=== PATIENT | female | born 1960 | race Caucasian/White ===

== ENCOUNTER 2017-04-19 08:18 | Inpatient (IN) | payer BC, OTHER, MEDICARE ==
--- NOTE | 2017-04-19 08:34 | ER Document Report ---
ED General - General Stated Complaint: POSSIBLE ETOH Time Seen by Provider: 04/19/17 08:31 Mode of Arrival: Medic Information source: Patient Notes: 56-year-old chronic alcoholic who recently moved here from [place] presents after 3 mechanical falls. Patient notes she has been too weak to stand. Patient admits to history of alcohol abuse and liver issues, denies having a paracentesis in the past. - HPI Onset: Just prior to arrival Onset/Duration: Sudden Quality of pain: No pain Severity: Moderate Pain Level: Denies Associated symptoms: Weakness Exacerbated by: Denies Relieved by: Denies Similar symptoms previously: Yes Recently seen / treated by doctor: No - Related Data Allergies/Adverse Reactions: No Known Allergies Allergy (Unverified 04/19/17 09:46) Past Medical History - Social History Smoking Status: Never Smoker Cigarette use (# per day): No Chew tobacco use (# tins/day): No Smoking Education Provided: No Frequency of alcohol use: Heavy Family History: Reviewed & Not Pertinent Review of Systems - Review of Systems Notes: REVIEW OF SYSTEMS: CONSTITUTIONAL : Denies fever, chills, or sweats. Denies recent illness. EENT: Denies eye, ear, throat, or mouth pain or symptoms. Denies nasal or sinus congestion or discharge. Denies throat, tongue, or mouth swelling or difficulty swallowing. CARDIOVASCULAR: Denies chest pain. Denies palpitations or racing or irregular heart beat. Denies ankle edema. RESPIRATORY: Denies cough, cold, or chest congestion. Denies shortness of breath, difficulty breathing, or wheezing. GASTROINTESTINAL: Denies abdominal pain or distention. Denies nausea, vomiting , or diarrhea. Denies blood in vomitus, stools, or per rectum. Denies black, tarry stools. Denies constipation. GENITOURINARY: Denies difficulty urinating, painful urination, burning, frequency, blood in urine, or discharge. FEMALE GENITOURINARY: Denies vaginal bleeding, heavy or abnormal periods, irregular periods. Denies vaginal discharge or odor. MUSCULOSKELETAL: Denies back or neck pain or stiffness. Denies joint pain or swelling. SKIN: Denies rash, lesions or sores. HEMATOLOGIC : Denies easy bruising or bleeding. LYMPHATIC: Denies swollen, enlarged glands. NEUROLOGICAL: Admits to weakness PHYSICAL EXAMINATION: GENERAL: Chronically ill-appearing female extremely jaundiced HEAD: Atraumatic, normocephalic. EYES: Pupils equal round and reactive to light, extraocular movements intact, conjunctiva are normal. ENT: Nares patent, oropharynx clear without exudates. Moist mucous membranes. NECK: Normal range of motion, supple without lymphadenopathy LUNGS: Breath sounds clear to auscultation bilaterally and equal. No wheezes rales or rhonchi. HEART: Regular rate and rhythm without murmurs ABDOMEN: Distended fluid level noted Female : deferred Musculoskeletal: bilateral lower extremity +3 pitting edema NEUROLOGICAL: Cranial nerves grossly intact. Normal speech, normal gait. Normal sensory, motor exams PSYCH: Normal mood, normal affect. SKIN: Patient has extensive ecchymosis all throughout PSYCHIATRIC: Denies anxiety or stress. Denies depression, suicidal ideation, or homicidal ideation. ALL OTHER SYSTEMS REVIEWED AND NEGATIVE. Dictation was performed using [employer] voice recognition software Physical Exam - Vital signs Vitals: Temp BP 97.7 F 86/47 L 04/19/17 08:30 04/19/17 08:30 Course - Re-evaluation Re-evalutation: 04/19/17 08:34 Suspect acute liver failure with her jaundice, quite hypotensive immediately ordered bolused fluids 04/19/17 08:34 04/19/17 10:33 Is noted to be anemic, she notes a history of gastric ulcer that was cauterized in the past with a hemoglobin of 6 requiring transfusion 04/19/17 12:55 Is noted to have severe hyponatremia as well, she was given normal saline thiamine and folate and will be admitted to the IMCU is a critical patient - Vital Signs Vital signs: Temp Pulse Resp BP Pulse Ox 97.7 F 27 H 95/63 L 97 04/19/17 08:30 04/19/17 09:23 04/19/17 09:23 04/19/17 09:23 - Laboratory Result Diagrams: 04/19/17 08:56 04/19/17 11:20 Laboratory results interpreted by me: 04/19/17 04/19/17 04/19/17 08:56 08:56 09:05 WBC 13.2 H RBC 2.05 L Hgb 7.6 L Hct 22.9 L MCV 112 H MCH 37.3 H RDW 18.4 H Seg Neuts % (Manual) 85 H Band Neutrophils % 2 L Lymphocytes % (Manual) 7 L Metamyelocytes % 1 H Myelocytes % 1 H Abs Neuts (Manual) 11.7 H PT 22.1 H Sodium Chloride Carbon Dioxide Glucose Calcium Total Bilirubin Direct Bilirubin AST Alkaline Phosphatase Albumin Urine Bilirubin MODERATE H Urine Urobilinogen 4.0 H Crossmatch 04/19/17 04/19/17 11:20 11:20 WBC RBC Hgb Hct MCV MCH RDW Seg Neuts % (Manual) Band Neutrophils % Lymphocytes % (Manual) Metamyelocytes % Myelocytes % Abs Neuts (Manual) PT Sodium 114.4 L* Chloride 83 L Carbon Dioxide 20 L Glucose 66 L Calcium 7.3 L Total Bilirubin 17.9 H Direct Bilirubin 15.1 H AST 93 H Alkaline Phosphatase 495 H Albumin 2.4 L Urine Bilirubin Urine Urobilinogen Crossmatch See Detail - Diagnostic Test Radiology reviewed: Image reviewed, Reports reviewed - EKG Interpretation by Wy EKG shows normal: Sinus rhythm, [place], Intervals, QRS Complexes Critical Care Note - Critical Care Note Total time excluding time spent on procedures (mins): 50 Comments: 50 minutes of critical care time spent in direct contact evaluating and reevaluating the patient, treating symptoms, reviewing labs and studies and speaking with family and consultants excluding any procedures Discharge - Discharge Clinical Impression: Alcohol abuse, Hyponatremia, Anemia requiring transfusions GI bleed Qualifiers: GI bleed type/associated pathology: unspecified gastrointestinal hemorrhage type Qualified Code(s): K92.2 - Gastrointestinal hemorrhage, unspecified Condition: Poor Disposition: ADMITTED INPATIENT Admitting Provider: Hospitalist Unit Admitted: [facility]
[2017-04-19] MEDS: NORMAL SALINE 1000 ML 1,000 ML IV PRN ×2 (09:01→12:54)
[2017-04-19 09:21] LABS: HEMATOCRIT 22.9 % (36.0-47.0); HGB HCT DIFFERENCE -0.1; MEAN CORPUSCULAR HEMOGLOBIN 37.3 pg (27.0-33.4); MEAN CORPUSCULAR HGB CONC 33.3 g/dL (32.0-36.0); RED BLOOD COUNT 2.05 10^6/uL (3.72-5.28); RED CELL DISTRIBUTION WIDTH 18.4 % (11.5-14.0); WHITE BLOOD COUNT 13.2 10^3/uL (4.0-10.5)
[2017-04-19 09:25] LABS: PROTHROMBIN TIME 22.1 SEC (11.4-15.4)
[2017-04-19 10:06] LABS: MEAN CORPUSCULAR VOLUME 112 fl (80-97)
[2017-04-19 10:10] LABS: ANISOCYTOSIS 2+; BAND NEUTROPHILS % (MANUAL) 2 % (3-5); BASOPHILS % (MANUAL) 0 % (0-2); EOSINOPHILS % (MANUAL) 0 % (0-6); HYPOCHROMASIA 1+; LYMPHOCYTES % (MANUAL) 7 % (13-45); PLATELET CLUMPS PRESENT; POLYCHROMASIA 1+; ROULEAUX 1+; TOTAL CELLS COUNTED 100; TOXIC GRANULATION 1+; TOXIC VACUOLATION PRESENT
[2017-04-19 10:11] LABS: HEMOGLOBIN 7.6 g/dL (12.0-15.5)
[2017-04-19] MEDS ORDERED: NORMAL SALINE 250 ML IV PRN ×2 (10:23)
[2017-04-19] MEDS ORDERED: OCTREOTIDE ACETATE INJ/PF 100 MCG/1 ML SDV IV ONE (11:04)
[2017-04-19] MEDS ORDERED: PANTOPRAZOLE SODIUM 40 MG VIAL IV ONE (11:04)
[2017-04-19 11:06] LABS: AMORPHOUS SEDIMENT,URINE TRACE /HPF; APPEARANCE,URINE SLIGHTLY-CLOUDY; BILIRUBIN,URINE MODERATE (NEGATIVE); GLUCOSE, URINE NEGATIVE (NEGATIVE); KETONES,URINE NEGATIVE (NEGATIVE); LEUKOCYTE ESTERASE,URINE NEGATIVE (NEGATIVE); NITRITE,URINE NEGATIVE (NEGATIVE); PROTEIN,URINE NEGATIVE (NEGATIVE); URINE SPECIFIC GRAVITY 1.009
[2017-04-19] MEDS ORDERED: PANTOPRAZOLE SODIUM 40 MG VIAL IV PRN (11:09)
[2017-04-19 11:26] LABS: URINE BARBITURATES SCREEN NEGATIVE; URINE METHADONE SCREEN NEGATIVE; URINE OPIATES LOW NEGATIVE; URINE PHENCYCLIDINE SCREEN NEGATIVE
[2017-04-19 11:48] LABS: ALANINE AMINOTRANSFERASE 45 U/L (9-52); ALBUMIN 2.4 g/dL (3.5-5.0); ALKALINE PHOSPHATASE 495 U/L (38-126); ANION GAP 11 (5-19); ASPARTATE AMINO TRANSFERASE 93 U/L (14-36); BILIRUBIN,DIRECT 15.1 mg/dL (0.0-0.4); BILIRUBIN,TOTAL 17.9 mg/dL (0.2-1.3); BLOOD UREA NITROGEN 10 mg/dL (7-20); CALCIUM 7.3 mg/dL (8.4-10.2); CARBON DIOXIDE 20 mmol/L (22-30); CHLORIDE 83 mmol/L (98-107); CREATININE RESULT 0.63 mg/dL (0.52-1.25); GLUCOSE 66 mg/dL (75-110); LIPASE 70.2 U/L (23-300); POTASSIUM 4.2 mmol/L (3.6-5.0); TOTAL PROTEIN 6.6 g/dL (6.3-8.2)
[2017-04-19 11:58] LABS: ALCOHOL < 10 mg/dL (NONE DETECTED)
[2017-04-19 11:59] LABS: SODIUM 114.4 mmol/L (137-145)
[2017-04-19] MEDS ORDERED: THIAMINE HCL 100 MG, FOLIC ACID 1 MG in NORMAL SALINE 50 ML IV SCH (13:00)
[2017-04-19] MEDS ORDERED: LORAZEPAM INJ 2 MG/1 ML VIAL IV PRN (13:05)
[2017-04-19] MEDS ORDERED: DEXTROSE 5%-NORMAL SALINE 1,000 ML IV PRN (13:06)
[2017-04-19] MEDS ORDERED: ONDANSETRON HCL INJ/PF 4 MG/2 ML SDV IV PRN (13:06)
[2017-04-19] MEDS ORDERED: ACETAMINOPHEN 325 MG TABLET PO PRN (13:06)
--- NOTE | 2017-04-19 13:31 | PDOC H&P ---
History of Present Illness Admission Date/PCP: No PCP Patient complains of: Frequent falls History of Present Illness: BARBARA OG is a 56 year old female with history of heavy alcohol abuse the presents to the emergency department with frequent falls and difficulty ambulating. In the emergency department she is found to have numerous medical problems including elevated liver function test, profound anemia, found hyponatremia. She denies any overt bleeding, hematemesis, melena. She does have a history of peptic ulcer disease. She states that she drinks a box of wine every 1-2 days. She has gone through alcohol withdrawal in the past. She has tried to abstain from alcohol in the past unsuccessfully. Past Medical History Cardiac Medical History: Reports: None Pulmonary Medical History: Reports: None Neurological Medical History: Reports: None Endocrine Medical History: Reports: None Malignancy Medical History: Reports: None GI Medical History: Reports: Peptic Ulcer Disease Psychiatric Medical History: Reports: Alcohol Dependency Social History Information Source: Patient Lives with: Alone Smoking Status: Never Smoker Frequency of Alcohol Use: Heavy Hx Recreational Drug Use: No Hx Prescription Drug Abuse: No - Advance Directive Resuscitation Status: Full Code Family History Family History: Reviewed & Not Pertinent Parental Family History Reviewed: Yes Children Family History Reviewed: Yes Sibling(s) Family History Reviewed.: Yes Medication/Allergy Allergies/Adverse Reactions: No Known Allergies Allergy (Unverified 04/19/17 09:46) Review of Systems Constitutional: PRESENT: fatigue, weakness. ABSENT: chills, fever(s), headache( s), weight gain, weight loss Eyes: ABSENT: visual disturbances Ears: ABSENT: hearing changes Cardiovascular: ABSENT: chest pain, dyspnea on exertion, edema, orthropnea, palpitations Respiratory: ABSENT: cough, hemoptysis Gastrointestinal: ABSENT: abdominal pain, constipation, diarrhea, hematemesis, hematochezia, nausea, vomiting Genitourinary: ABSENT: dysuria, hematuria Musculoskeletal: ABSENT: joint swelling Integumentary: ABSENT: rash, wounds Neurological: PRESENT: abnormal gait. ABSENT: abnormal speech, confusion, dizziness, focal weakness, syncope Psychiatric: ABSENT: anxiety, depression, homidical ideation, suicidal ideation Endocrine: ABSENT: cold intolerance, heat intolerance, polydipsia, polyuria Hematologic/Lymphatic: ABSENT: easy bleeding, easy bruising Physical Exam Vital Signs: Temp Pulse Resp BP Pulse Ox 97.7 F 27 H 95/63 L 97 04/19/17 08:30 04/19/17 09:23 04/19/17 09:23 04/19/17 09:23 Intake & Output 04/18/17 04/19/17 04/20/17 06:59 06:59 06:59 Weight 81.647 kg PHYSICAL EXAM: GENERAL: Appears well, no acute distress, jaundice HEENT: Normocephalic, scleral icterus noted, conjunctiva clear, EOEM intact, PERRLA, moist mucous membranes NECK: trachea midline, no thyromegally RESPIRATORY: Clear to auscultation, no wheezes/rhonchi CARDIAC: Regular rate and rhythm, no murmur/giovanni/rub ABDOMEN: Soft, no distension, no tenderness, no guarding, normal bowel sounds, negative Castro sign RECTAL: deferred : deferred EXTREMITIES: No edema, cyanosis, clubbing MUSCULOSKELETAL: No joint swelling or deformity VASCULAR: normal peripheral pulses NEUROLOGIC: Alert, oriented to person/place/time, normal speech, cranial nerves grossly intact, 5/5 strength in all extremities, tactile sensation intact in all extremities SKIN: No rash, no wounds, no worrisome skin lesions PSYCHIATRIC: Depressed mood, unusual affect Results Laboratory Results: 04/19/17 08:56 04/19/17 11:20 04/19/17 04/19/17 04/19/17 08:56 08:56 08:56 WBC 13.2 H RBC 2.05 L Hgb 7.6 L Hct 22.9 L MCV 112 H MCH 37.3 H MCHC 33.3 RDW 18.4 H Plt Count 152 Seg Neutrophils % Not Reportable Lymphocytes % Not Reportable Monocytes % Not Reportable Eosinophils % Not Reportable Basophils % Not Reportable Absolute Neutrophils Not Reportable Absolute Lymphocytes Not Reportable Absolute Monocytes Not Reportable Absolute Eosinophils Not Reportable Absolute Basophils Not Reportable Sodium Cancelled Potassium Cancelled Chloride Cancelled Carbon Dioxide Cancelled Anion Gap Cancelled BUN Cancelled Creatinine Cancelled Est GFR ( Amer) Cancelled Est GFR (Non-Af Amer) Cancelled Glucose Cancelled Calcium Cancelled Total Bilirubin Cancelled AST Cancelled ALT Cancelled Alkaline Phosphatase Cancelled Ammonia Cancelled Total Protein Cancelled Albumin Cancelled Lipase Cancelled Urine Color Urine Appearance Urine pH Ur Specific [place] Urine Protein Urine Glucose (UA) Urine Ketones Urine Blood Urine Nitrite Ur Leukocyte Esterase Urine WBC (Auto) Urine RBC (Auto) Stool Occult Blood Blood Type Antibody Screen 04/19/17 04/19/17 04/19/17 09:05 10:20 11:20 WBC RBC Hgb Hct MCV MCH MCHC RDW Plt Count Seg Neutrophils % Lymphocytes % Monocytes % Eosinophils % Basophils % Absolute Neutrophils Absolute Lymphocytes Absolute Monocytes Absolute Eosinophils Absolute Basophils Sodium 114.4 L* Potassium 4.2 Chloride 83 L Carbon Dioxide 20 L Anion Gap 11 BUN 10 Creatinine 0.63 Est GFR ( Amer) > 60 Est GFR (Non-Af Amer) > 60 Glucose 66 L Calcium 7.3 L Total Bilirubin 17.9 H AST 93 H ALT 45 Alkaline Phosphatase 495 H Ammonia Total Protein 6.6 Albumin 2.4 L Lipase 70.2 Urine Color DOMI Urine Appearance SLIGHTLY-CLOUDY Urine pH 5.0 Ur Specific [place] 1.009 Urine Protein NEGATIVE Urine Glucose (UA) NEGATIVE Urine Ketones NEGATIVE Urine Blood NEGATIVE Urine Nitrite NEGATIVE Ur Leukocyte Esterase NEGATIVE Urine WBC (Auto) 3 Urine RBC (Auto) 0 Stool Occult Blood POSITIVE Blood Type Antibody Screen 04/19/17 04/19/17 11:20 12:00 WBC RBC Hgb Hct MCV MCH MCHC RDW Plt Count Seg Neutrophils % Lymphocytes % Monocytes % Eosinophils % Basophils % Absolute Neutrophils Absolute Lymphocytes Absolute Monocytes Absolute Eosinophils Absolute Basophils Sodium Potassium Chloride Carbon Dioxide Anion Gap BUN Creatinine Est GFR ( Amer) Est GFR (Non-Af Amer) Glucose Calcium Total Bilirubin AST ALT Alkaline Phosphatase Ammonia 23.5 Total Protein Albumin Lipase Urine Color Urine Appearance Urine pH Ur Specific [place] Urine Protein Urine Glucose (UA) Urine Ketones Urine Blood Urine Nitrite Ur Leukocyte Esterase Urine WBC (Auto) Urine RBC (Auto) Stool Occult Blood Blood Type A POSITIVE Antibody Screen NEGATIVE Assessment & Plan - Diagnosis (1) Acute blood loss anemia Is this a current diagnosis for this admission?: YesPlan: Transfuse 2 units PRBC. Monitor H&H for stability. (2) GI bleed Qualifiers: GI bleed type/associated pathology: unspecified gastrointestinal hemorrhage type Qualified Code(s): K92.2 - Gastrointestinal hemorrhage, unspecified Is this a current diagnosis for this admission?: YesPlan: Continue IV Protonix and IV octreotide. Consult Dr. Poole of GI. (3) Abnormal liver function test Is this a current diagnosis for this admission?: YesPlan: Likely secondary to heavy alcohol abuse. Check right upper quadrant ultrasound. Check viral hepatitis panel. Consult GI. (4) Alcohol abuse Is this a current diagnosis for this admission?: YesPlan: IV thiamine. As needed IV Ativan. Consult Dr. Odonnell of psychology. (5) Hyponatremia Is this a current diagnosis for this admission?: YesPlan: Likely secondary to heavy alcohol abuse. Should correct with abstinence from alcohol. (6) Coagulopathy Is this a current diagnosis for this admission?: YesPlan: Likely related to cirrhosis of liver. - Time Time Spent: Greater than 70 Minutes
[2017-04-19] MEDS: NORMAL SALINE 500 ML with OCTREOTIDE ACETATE 500 MCG IV PRN ×2 (14:50)
[2017-04-19] MEDS ORDERED: PHYTONADIONE 5 MG TABLET PO ONE (19:07)
--- NOTE | 2017-04-19 20:59 | CONSULTATION REPORT E ---
Consultation Report NAME: BARBARA OG : 1960 AGE: 56Y DATE: 04/19/2017 307 A TO: LUCIANO RUIZ M.D. FROM: AV HICKMAN Requesting Physician HISTORY OF PRESENT ILLNESS: A 56-year-old patient admitted with frequent falls. On admission, she was found to be anemic and jaundiced. Consultation was requested for GI bleed and alcoholic liver disease. The patient has been aware of liver disease in the last 6 months but has not been informed of cirrhosis. She has been abusing alcohol for years. She also is not aware of previous anemia. She admits to having black stools off and on but could not tell me for how long. She is not a very good historian. On admission, her hemoglobin was 7.6 with white count of 13 and platelets of 152. Her red cell indices were elevated. INR was 1.82. Total bilirubin was 18 with a direct of 15. Her sodium was 114. She is currently receiving blood transfusion. BUN and creatinine were normal. PAST MEDICAL HISTORY: Alcohol liver disease. PAST SURGICAL HISTORY: Not significant. ALLERGIES: None. SOCIAL HISTORY: She drinks every day. REVIEW OF SYSTEMS: Other than the above, this is non-contributory. PHYSICAL EXAMINATION: GENERAL: Physical examination shows an obese lady who is obviously jaundiced. VITAL SIGNS: She has a blood pressure of 92/51. Heart rate of 89. Temperature of 97.2. HEENT: There is pallor and jaundice. Oropharynx normal. NECK: No bruit, no JVD. CHEST: No deformity. Lungs clear. ABDOMEN: Soft and obese. Difficult to feel for masses. Bowel sounds active. NEUROLOGIC: Not fully examined. DIAGNOSTIC TESTS: Other laboratory tests showed AST of 93, ALT 45, alkaline phosphatase of 495. Lipase of 70. Albumin of 2.4. Hepatitis A, B, and C serologies were requested and pending. Her stool was positive for occult blood. ASSESSMENT AND PLAN: 1. Macrocytic anemia. Etiology is unclear at this time. This could partly be from gastrointestinal bleed, but B12 and folate deficiency should be ruled out. She was sent for more blood work. She is currently on Sandostatin for possible variceal bleeding. She has had episodes of black stools off and on for a while. 2. Gastrointestinal bleed. She does admit to melena off and on. She will need esophagogastroduodenoscopy and colonoscopy at some point, but I am holding off due to her severe hyponatremia and liver failure. We should continue with Sandostatin for now. 3. Liver failure. This may be acute alcoholic liver failure or acute on chronic failure. Her bilirubin is 18. We will continue with conservative management for now. I will start her on vitamin K. She is not a candidate for liver transplant. 4. Hyponatremia. This is probably related to her alcoholism. I reduced her IV fluids for now. DICTATING PHYSICIAN: LUCIANO RUIZ M.D. [id number] PHY#: [id number] ID: [id number] JOB#: [id number] ACCT: [id number] cc:LUCIANO RUIZ M.D. >
[2017-04-19] MEDS ORDERED: PANTOPRAZOLE SODIUM 40 MG VIAL IV SCH (22:00)
[2017-04-19 23:57] LABS: HEMATOCRIT 25.3 % (36.0-47.0); HEMOGLOBIN 8.7 g/dL (12.0-15.5); HGB HCT DIFFERENCE 0.8; MEAN CORPUSCULAR HEMOGLOBIN 35.3 pg (27.0-33.4); MEAN CORPUSCULAR HGB CONC 34.3 g/dL (32.0-36.0); RED BLOOD COUNT 2.46 10^6/uL (3.72-5.28); RED CELL DISTRIBUTION WIDTH 24.8 % (11.5-14.0); WHITE BLOOD COUNT 10.8 10^3/uL (4.0-10.5)
[2017-04-20 00:06] LABS: MEAN CORPUSCULAR VOLUME 103 fl (80-97)
[2017-04-20] MEDS: NORMAL SALINE 500 ML with OCTREOTIDE ACETATE 500 MCG IV PRN ×2 (01:12)
[2017-04-20 05:11] LABS: HEMATOCRIT 26.1 % (36.0-47.0); HEMOGLOBIN 8.9 g/dL (12.0-15.5); HGB HCT DIFFERENCE 0.6; MEAN CORPUSCULAR HEMOGLOBIN 35.4 pg (27.0-33.4); MEAN CORPUSCULAR HGB CONC 34.2 g/dL (32.0-36.0); MEAN CORPUSCULAR VOLUME 104 fl (80-97); RED BLOOD COUNT 2.52 10^6/uL (3.72-5.28); RED CELL DISTRIBUTION WIDTH 25.1 % (11.5-14.0); WHITE BLOOD COUNT 10.6 10^3/uL (4.0-10.5)
[2017-04-20 05:20] LABS: PROTHROMBIN TIME 21.3 SEC (11.4-15.4)
[2017-04-20 05:21] LABS: ALANINE AMINOTRANSFERASE 46 U/L (9-52); ALBUMIN 2.5 g/dL (3.5-5.0); ALKALINE PHOSPHATASE 461 U/L (38-126); ANION GAP 12 (5-19); ASPARTATE AMINO TRANSFERASE 103 U/L (14-36); BILIRUBIN,DIRECT 16.8 mg/dL (0.0-0.4); BILIRUBIN,TOTAL 19.6 mg/dL (0.2-1.3); BLOOD UREA NITROGEN 10 mg/dL (7-20); CALCIUM 7.7 mg/dL (8.4-10.2); CARBON DIOXIDE 21 mmol/L (22-30); CHLORIDE 90 mmol/L (98-107); CREATININE RESULT 0.69 mg/dL (0.52-1.25); GLUCOSE 89 mg/dL (75-110); POTASSIUM 4.1 mmol/L (3.6-5.0); SODIUM 122.7 mmol/L (137-145); TOTAL PROTEIN 6.5 g/dL (6.3-8.2)
[2017-04-20 06:04] LABS: BAND NEUTROPHILS % (MANUAL) 1 % (3-5); BASOPHILS % (MANUAL) 0 % (0-2); EOSINOPHILS % (MANUAL) 0 % (0-6); LYMPHOCYTES % (MANUAL) 0 % (13-45); TOTAL CELLS COUNTED 100
[2017-04-20 06:08] LABS: ANISOCYTOSIS 3+; POLYCHROMASIA 1+; TARGET CELLS 1+; TEAR DROP CELLS SLIGHT
[2017-04-20 06:10] LABS: POIKILOCYTOSIS 1+
[2017-04-20] MEDS ORDERED: THIAMINE HCL 100 MG in NORMAL SALINE 50 ML IV SCH (10:00)
--- NOTE | 2017-04-20 10:17 | RADIOLOGY REPORT (SQ) ---
EXAM DESCRIPTION: U/S ABDOMEN LIMITED W/O DOP COMPLETED DATE/TIME: 04/20/2017 9:53 am REASON FOR STUDY: elevated LFT COMPARISON: None. TECHNIQUE: Dynamic and static grayscale images acquired of the abdomen and recorded on PACS. Additio nal selected color Doppler and spectral images recorded. LIMITATIONS: None. FINDINGS: PANCREAS: Poorly visualized due to overlying bowel gas. LIVER: Liver demonstrates increased echogenicity with coarsened echotexture consistent with fatty dep osition. No focal lesions. Liver is normal in size. LIVER VASCULATURE: Normal directional flow of the main portal vein and hepatic veins. GALLBLADDER: No stones. Normal wall thickness. No pericholecystic fluid. ULTRASOUND-DETECTED LOCKWOOD'S SIGN: Negative. INTRAHEPATIC DUCTS AND COMMON DUCT: Limited visualization due to patient body habitus. INFERIOR VENA CAVA: Normal flow. AORTA: No aneurysm. There is there is a echogenic focus seen in the mid aorta which could represent calcified plaque RIGHT KIDNEY: Not visualized due to patient body habitus. PERITONEAL AND RIGHT PLEURAL SPACE: No ascites or effusions. OTHER: No other significant findings. IMPRESSION: 1. Limited study due to patient body habitus as detailed above. 2. Hepatic steatosis. No focal liver lesions. 3. Echogenic focus noted in the mid aorta which could represent calcified plaque within the lumen. TECHNICAL DOCUMENTATION: JOB ID: [id number] [employer]- All Rights Reserved
[2017-04-20] MEDS: DIAZEPAM 5 MG TABLET PO SCH ×2 (13:20→21:49)
[2017-04-20] MEDS ORDERED: NORMAL SALINE 1000 ML 1,000 ML IV PRN (14:33)
--- NOTE | 2017-04-20 14:34 | PSYCHOLOGICAL NOTE ---
Psych Note - Psych Note Psych Note: Patient is a 56 year old female who presented to the ED yesterday for having frequent falls and difficulty ambulating. She was subsequently admitted to the third floor for acute blood loss anemia, GI Bleed, abnormal liver functioning test, alcohol abuse, hyponatremia, and coagulopathy. A psychiatric consult was ordered to address alcohol abuse. Patient's attending nurse identified patient denied having a problem, refused [facility] services, lives with her 83 year old father, mother is in [place], sister is in [place], and patient just moved to [place] 2 months ago. Patient admitted she has a problem with drinking. She confirmed she drinks a box of wine every 1-2 days, stated she has for a long time, but not 10 years or more. She stated alcoholism runs in the family. She stated she has to stop drinking, commented it is not a matter of wanting to but being told she is in liver failure is enough motivation to stop. She stated the only treatment she has had for SA was when she was in Physical Rehabilitation for a broken leg, where there were 5 group members who met for weekly meetings that were like AA. She denied any other SA or MH treatment (denied inpatient MH). She stated she moved to [place] from [place] 2 months ago and does not have a PCM. She stated she was open to medication, specifically something for anxiety. She stated anxiety is why she drinks and her trigger is her father. She refused wanting linkage to outpatient MH/SA provider and commented "I just need to get home and get the house in order." She identified if the hospital has recommendations for PCMs that would be helpful and she would follow up. She identified she had [place] insurance and won't have it for much longer because her divorce will be going through. Patient was alert and oriented. Mood was irritable with congruent affect. Note she was still cooperative. She denied SI/HI. She did not appear to be responding to internal stimuli AEB fair eye contact, answering questions appropriately when addressed, and staying on topic. Thought processes were linear. Conversational speech was WNL for rate, tone, and prosody. Intellectual abilities are estimated to be average. Insight, judgment and impulse control are fair AEB recognition that she is in liver failure which means she needs to quit drinking alcohol. Diagnosis: 303.90 (F10.20) Alcohol Use Disorder, Severe 311 (F32.9) Unspecified Depressive Disorder Impression/Plan: Recommendation for patient to follow up with outpatient SA treatment once discharged. She will likely be detoxed already depending on how many days she remains medically inpatient. Provided outpatient resource list to patient for follow up. Consulted with Dr. Odonnell regarding the management and care of patient.
--- NOTE | 2017-04-20 14:38 | PDOC PROGRESS REPORT ---
Subjective Progress Note for:: 04/20/17 Subjective:: Nursing reports that patient has been very anxious and somewhat demanding at times. Patient's only concern is that she wants to eat. Patient denies fever, chills, headache, new focal weakness, chest pain, shortness of breath, abdominal pain, nausea, vomiting, diarrhea, constipation. Physical Exam Vital Signs: Temp Pulse Resp BP Pulse Ox 98.4 F 96 18 93/45 L 95 04/20/17 07:33 04/20/17 07:33 04/20/17 07:33 04/20/17 07:33 04/20/17 07:33 Intake & Output 04/19/17 04/20/17 04/21/17 06:59 06:59 06:59 Intake Total 1690 Output Total 2400 Balance -710 Weight 100.2 kg 100.2 kg GENERAL: No acute distress, overtly jaundiced HEENT: Sclera icteric, moist mucous membranes, no JVD, midline trachea RESPIRATORY: Clear to auscultation bilaterally, no wheezes, no rhonchi CARDIAC: Regular rate and rhythm, no murmurs/gallops/rubs ABDOMEN: Soft, nondistended, nontender, positive bowel sounds, no rebound, no guarding EXTREMETIES: No edema, cyanosis, clubbing NEUROLOGIC: Alert, oriented to person/place/time, CN's grossly intact, no focal deficits SKIN: No rash, wounds PSYCH: Usual affect Results Laboratory Results: 04/20/17 04:12 04/20/17 04:12 04/19/17 04/19/17 04/20/17 23:25 23:25 04:12 WBC 10.8 H 10.6 H RBC 2.46 L 2.52 L Hgb 8.7 L 8.9 L Hct 25.3 L 26.1 L MCV 103 H D 104 H MCH 35.3 H 35.4 H MCHC 34.3 34.2 RDW 24.8 H 25.1 H Plt Count 120 L 150 Seg Neutrophils % Not Reportable Lymphocytes % Not Reportable Monocytes % Not Reportable Eosinophils % Not Reportable Basophils % Not Reportable Absolute Neutrophils Not Reportable Absolute Lymphocytes Not Reportable Absolute Monocytes Not Reportable Absolute Eosinophils Not Reportable Absolute Basophils Not Reportable Sodium Potassium Chloride Carbon Dioxide Anion Gap BUN Creatinine Est GFR ( Amer) Est GFR (Non-Af Amer) Glucose Calcium Magnesium Iron 70.9 TIBC 152 L % Saturation 47 Ferritin 259.00 Total Bilirubin AST ALT Alkaline Phosphatase Total Protein Albumin Vitamin B12 > 1000.0 H 04/20/17 04:12 WBC RBC Hgb Hct MCV MCH MCHC RDW Plt Count Seg Neutrophils % Lymphocytes % Monocytes % Eosinophils % Basophils % Absolute Neutrophils Absolute Lymphocytes Absolute Monocytes Absolute Eosinophils Absolute Basophils Sodium 122.7 L Potassium 4.1 Chloride 90 L Carbon Dioxide 21 L Anion Gap 12 BUN 10 Creatinine 0.69 Est GFR ( Amer) > 60 Est GFR (Non-Af Amer) > 60 Glucose 89 Calcium 7.7 L Magnesium 2.0 Iron TIBC % Saturation Ferritin Total Bilirubin 19.6 H AST 103 H ALT 46 Alkaline Phosphatase 461 H Total Protein 6.5 Albumin 2.5 L Vitamin B12 Impressions: Abdomen Ultrasound 04/19/17 13:23 IMPRESSION: 1. Limited study due to patient body habitus as detailed above. 2. Hepatic steatosis. No focal liver lesions. 3. Echogenic focus noted in the mid aorta which could represent calcified plaque within the lumen. Assessment & Plan - Diagnosis (1) Acute blood loss anemia Is this a current diagnosis for this admission?: YesPlan: Transfused 2 units PRBC. Monitor H&H for stability. (2) GI bleed Qualifiers: GI bleed type/associated pathology: unspecified gastrointestinal hemorrhage type Qualified Code(s): K92.2 - Gastrointestinal hemorrhage, unspecified Is this a current diagnosis for this admission?: YesPlan: Prevacid. Dr. Poole of GI planning upper and lower endoscopy eventually once medical condition stabilized. (3) Abnormal liver function test Is this a current diagnosis for this admission?: YesPlan: Likely secondary to heavy alcohol abuse. GI following. (4) Alcohol abuse Is this a current diagnosis for this admission?: YesPlan: IV thiamine. Scheduled oral Ativan. As needed IV Ativan. Consult Dr. Odonnell of psychology. (5) Hyponatremia Is this a current diagnosis for this admission?: YesPlan: Likely secondary to heavy alcohol abuse. Correcting (6) Coagulopathy Is this a current diagnosis for this admission?: YesPlan: Secondary to alcohol-related liver disease. Patient was administered vitamin K on 04/19/2017. Continue to monitor coags. - Time Time Spent with patient: 35 or more minutes
[2017-04-20] MEDS: LANSOPRAZOLE 30 MG TAB.RAP.DR PO SCH (17:04)
[2017-04-20 17:15] LABS: PATH REVIEW PATHOLOGIST REVIEWED
[2017-04-20] MEDS: LORAZEPAM INJ 2 MG/1 ML VIAL IV PRN (20:50)
[2017-04-21 04:56] LABS: PROTHROMBIN TIME 19.4 SEC (11.4-15.4)
[2017-04-21 04:59] LABS: HEMATOCRIT 26.3 % (36.0-47.0); HEMOGLOBIN 8.9 g/dL (12.0-15.5); HGB HCT DIFFERENCE 0.4; MEAN CORPUSCULAR HEMOGLOBIN 35.9 pg (27.0-33.4); MEAN CORPUSCULAR VOLUME 105 fl (80-97); RED BLOOD COUNT 2.49 10^6/uL (3.72-5.28); RED CELL DISTRIBUTION WIDTH 25.9 % (11.5-14.0); WHITE BLOOD COUNT 10.8 10^3/uL (4.0-10.5)
[2017-04-21 05:09] LABS: ALANINE AMINOTRANSFERASE 39 U/L (9-52); ALBUMIN 2.4 g/dL (3.5-5.0); ALKALINE PHOSPHATASE 409 U/L (38-126); ANION GAP 11 (5-19); ASPARTATE AMINO TRANSFERASE 106 U/L (14-36); BILIRUBIN,DIRECT 17.1 mg/dL (0.0-0.4); BILIRUBIN,TOTAL 19.8 mg/dL (0.2-1.3); BLOOD UREA NITROGEN 10 mg/dL (7-20); CALCIUM 7.7 mg/dL (8.4-10.2); CARBON DIOXIDE 21 mmol/L (22-30); CHLORIDE 94 mmol/L (98-107); GLUCOSE 136 mg/dL (75-110); MAGNESIUM 2.1 mg/dL (1.6-2.3); POTASSIUM 4.2 mmol/L (3.6-5.0); SODIUM 126.2 mmol/L (137-145); TOTAL PROTEIN 6.4 g/dL (6.3-8.2)
[2017-04-21 05:11] LABS: BAND NEUTROPHILS % (MANUAL) 5 % (3-5); BASOPHILS % (MANUAL) 0 % (0-2); EOSINOPHILS % (MANUAL) 1 % (0-6); LYMPHOCYTES % (MANUAL) 9 % (13-45); TOTAL CELLS COUNTED 100
[2017-04-21 05:13] LABS: ANISOCYTOSIS 3+; POIKILOCYTOSIS 2+; POLYCHROMASIA SLIGHT; ROULEAUX 2+; TOXIC GRANULATION SLIGHT; TOXIC VACUOLATION PRESENT
[2017-04-21] MEDS: DIAZEPAM 5 MG TABLET PO SCH ×3 (05:36→21:14)
[2017-04-21] MEDS: LANSOPRAZOLE 30 MG TAB.RAP.DR PO SCH ×3 (05:36→15:44)
--- NOTE | 2017-04-21 09:59 | Physician Advisory Note ---
Physician Advisor ProgressNote .: Pursuant to the plan for [facility], I have reviewed the medical record for this patient. Physician Advisor Statement: Please consider documentin. "SIRS, present on adm, due to acute GIBleed w/associated AABL" [connect the AABL w/its cause] 2. "obesity w/BMI 41.5" 3. likely cause of GIBleed Thanks! CK
--- NOTE | 2017-04-21 11:23 | PDOC PROGRESS REPORT ---
Subjective Progress Note for:: 04/21/17 Subjective:: Nursing reports no new issues. Patient has no new complaints. Patient denies fever, chills, headache, new focal weakness, chest pain, shortness of breath, abdominal pain, nausea, vomiting, diarrhea, constipation. Physical Exam Vital Signs: Temp Pulse Resp BP Pulse Ox 98.0 F 95 22 H 95/46 L 92 04/21/17 04:04 04/21/17 04:04 04/21/17 04:04 04/21/17 04:04 04/21/17 04:04 Intake & Output 04/20/17 04/21/17 04/22/17 06:59 06:59 06:59 Intake Total 1690 1835 Output Total 2400 1250 Balance -710 585 Weight 100.2 kg 99.6 kg GENERAL: No acute distress, overtly jaundiced HEENT: Sclera icteric, moist mucous membranes, no JVD, midline trachea RESPIRATORY: Clear to auscultation bilaterally, no wheezes, no rhonchi CARDIAC: Regular rate and rhythm, no murmurs/gallops/rubs ABDOMEN: Soft, nondistended, nontender, positive bowel sounds, no rebound, no guarding EXTREMETIES: No edema, cyanosis, clubbing NEUROLOGIC: Alert, oriented to person/place/time, CN's grossly intact, no focal deficits SKIN: No rash, wounds PSYCH: Usual affect Results Laboratory Results: 04/21/17 03:58 04/21/17 03:58 04/19/17 04/21/17 04/21/17 23:25 03:58 03:58 WBC 10.8 H RBC 2.49 L Hgb 8.9 L Hct 26.3 L MCV 105 H MCH 35.9 H MCHC 34.0 RDW 25.9 H Plt Count 151 Seg Neutrophils % Not Reportable Lymphocytes % Not Reportable Monocytes % Not Reportable Eosinophils % Not Reportable Basophils % Not Reportable Absolute Neutrophils Not Reportable Absolute Lymphocytes Not Reportable Absolute Monocytes Not Reportable Absolute Eosinophils Not Reportable Absolute Basophils Not Reportable Sodium 126.2 L Potassium 4.2 Chloride 94 L Carbon Dioxide 21 L Anion Gap 11 BUN 10 Creatinine 0.70 Est GFR ( Amer) > 60 Est GFR (Non-Af Amer) > 60 Glucose 136 H Calcium 7.7 L Magnesium 2.1 Transferrin 75 L Total Bilirubin 19.8 H AST 106 H ALT 39 Alkaline Phosphatase 409 H Total Protein 6.4 Albumin 2.4 L Impressions: Abdomen Ultrasound 04/19/17 13:23 IMPRESSION: 1. Limited study due to patient body habitus as detailed above. 2. Hepatic steatosis. No focal liver lesions. 3. Echogenic focus noted in the mid aorta which could represent calcified plaque within the lumen. Assessment & Plan - Diagnosis (1) Acute blood loss anemia Is this a current diagnosis for this admission?: YesPlan: Transfused 2 units PRBC. Monitor H&H for stability. (2) GI bleed Qualifiers: GI bleed type/associated pathology: unspecified gastrointestinal hemorrhage type Qualified Code(s): K92.2 - Gastrointestinal hemorrhage, unspecified Is this a current diagnosis for this admission?: YesPlan: Prevacid. Dr. Poole of GI planning upper and lower endoscopy eventually once medical condition stabilized. (3) Abnormal liver function test Is this a current diagnosis for this admission?: YesPlan: Likely secondary to heavy alcohol abuse. GI following. (4) Alcohol abuse Is this a current diagnosis for this admission?: YesPlan: IV thiamine. Scheduled oral Ativan. As needed IV Ativan. Consult Dr. Odonnell of psychology. (5) Hyponatremia Is this a current diagnosis for this admission?: YesPlan: Likely secondary to heavy alcohol abuse. Correcting (6) Coagulopathy Is this a current diagnosis for this admission?: YesPlan: Secondary to alcohol-related liver disease. Patient was administered vitamin K on 04/19/2017. Continue to monitor coags. - Time Time Spent with patient: 25-34 minutes
[2017-04-21] MEDS ORDERED: ONDANSETRON HCL INJ/PF 4 MG/2 ML SDV IV PRN (14:17)
[2017-04-21 15:39] LABS: FOL RBC HEMATOCRIT 24.5 % (34.0-46.6); FOLATE HEMOLYSATE 314.3 ng/mL (Not Estab.)
[2017-04-21] MEDS: THIAMINE HCL 100 MG TABLET PO SCH (15:43)
[2017-04-22] MEDS: LORAZEPAM INJ 2 MG/1 ML VIAL IV PRN ×2 (00:28→08:28)
[2017-04-22 05:07] LABS: PROTHROMBIN TIME 19.5 SEC (11.4-15.4)
[2017-04-22 05:13] LABS: HEMOGLOBIN 8.4 g/dL (12.0-15.5); HGB HCT DIFFERENCE 0.2; MEAN CORPUSCULAR HEMOGLOBIN 35.5 pg (27.0-33.4); MEAN CORPUSCULAR HGB CONC 33.5 g/dL (32.0-36.0); MEAN CORPUSCULAR VOLUME 106 fl (80-97); RED BLOOD COUNT 2.36 10^6/uL (3.72-5.28); RED CELL DISTRIBUTION WIDTH 25.5 % (11.5-14.0); WHITE BLOOD COUNT 8.9 10^3/uL (4.0-10.5)
[2017-04-22 05:26] LABS: ALANINE AMINOTRANSFERASE 37 U/L (9-52); ALBUMIN 2.3 g/dL (3.5-5.0); ALKALINE PHOSPHATASE 361 U/L (38-126); ANION GAP 9 (5-19); ASPARTATE AMINO TRANSFERASE 108 U/L (14-36); BILIRUBIN,DIRECT 17.6 mg/dL (0.0-0.4); BILIRUBIN,TOTAL 20.3 mg/dL (0.2-1.3); BLOOD UREA NITROGEN 9 mg/dL (7-20); CALCIUM 7.9 mg/dL (8.4-10.2); CARBON DIOXIDE 21 mmol/L (22-30); CHLORIDE 101 mmol/L (98-107); CREATININE RESULT 0.72 mg/dL (0.52-1.25); GLUCOSE 89 mg/dL (75-110); MAGNESIUM 2.2 mg/dL (1.6-2.3); POTASSIUM 3.9 mmol/L (3.6-5.0); SODIUM 131.2 mmol/L (137-145); TOTAL PROTEIN 6.4 g/dL (6.3-8.2)
[2017-04-22 05:53] LABS: BAND NEUTROPHILS % (MANUAL) 2 % (3-5); BASOPHILS % (MANUAL) 0 % (0-2); EOSINOPHILS % (MANUAL) 1 % (0-6); LYMPHOCYTES % (MANUAL) 6 % (13-45); TOTAL CELLS COUNTED 100
[2017-04-22 05:54] LABS: TOXIC GRANULATION SLIGHT
[2017-04-22 05:55] LABS: ANISOCYTOSIS 3+; BURR CELLS SLIGHT; OVALOCYTES SLIGHT; POIKILOCYTOSIS SLIGHT; POLYCHROMASIA SLIGHT; SCHISTOCYTES SLIGHT; TEAR DROP CELLS SLIGHT; TOXIC VACUOLATION PRESENT
[2017-04-22] MEDS: LANSOPRAZOLE 30 MG TAB.RAP.DR PO SCH ×2 (05:55→18:44)
[2017-04-22] MEDS: DIAZEPAM 5 MG TABLET PO SCH ×3 (05:55→21:37)
[2017-04-22] MEDS ORDERED: LANSOPRAZOLE 30 MG TAB.RAP.DR PO ONE (06:00)
[2017-04-22] MEDS: THIAMINE HCL 100 MG TABLET PO SCH (10:00)
[2017-04-22 10:56] LABS: FOLATE RBC 3 1283 ng/mL (>498)
--- NOTE | 2017-04-22 13:42 | PDOC PROGRESS REPORT ---
Subjective Progress Note for:: 04/22/17 Subjective:: Nursing reports the patient was having hallucinations overnight. She alternates between times of agitation and other times of somnolence. When I asked her how she is doing she yells at me and states that she wants to get out of bed. She does not report reliable review of systems secondary to encephalopathy. Physical Exam Vital Signs: Temp Pulse Resp BP Pulse Ox 97.3 F 76 19 92/55 L 90 L 04/22/17 11:35 04/22/17 11:35 04/22/17 11:35 04/22/17 11:35 04/22/17 11:35 Intake & Output 04/21/17 04/22/17 04/23/17 06:59 06:59 06:59 Intake Total 1835 846 0 Output Total 1250 2600 225 Balance 520 -6857 -276 Weight 99.6 kg 95.8 kg GENERAL: No acute distress, overtly jaundiced HEENT: Sclera icteric, moist mucous membranes, no JVD, midline trachea RESPIRATORY: Clear to auscultation bilaterally, no wheezes, no rhonchi CARDIAC: Regular rate and rhythm, no murmurs/gallops/rubs ABDOMEN: Soft, nondistended, nontender, positive bowel sounds, no rebound, no guarding EXTREMETIES: No edema, cyanosis, clubbing NEUROLOGIC: Somnolent, oriented to person/place/time, CN's grossly intact, no focal deficits SKIN: No rash, wounds PSYCH: Usual affect Results Laboratory Results: 04/22/17 04:16 04/22/17 04:16 04/22/17 04/22/17 04/22/17 04:16 04:16 08:49 WBC 8.9 RBC 2.36 L Hgb 8.4 L Hct 25.0 L MCV 106 H MCH 35.5 H MCHC 33.5 RDW 25.5 H Plt Count 152 Seg Neutrophils % Not Reportable Lymphocytes % Not Reportable Monocytes % Not Reportable Eosinophils % Not Reportable Basophils % Not Reportable Absolute Neutrophils Not Reportable Absolute Lymphocytes Not Reportable Absolute Monocytes Not Reportable Absolute Eosinophils Not Reportable Absolute Basophils Not Reportable Sodium 131.2 L Potassium 3.9 Chloride 101 Carbon Dioxide 21 L Anion Gap 9 BUN 9 Creatinine 0.72 Est GFR ( Amer) > 60 Est GFR (Non-Af Amer) > 60 Glucose 89 Calcium 7.9 L Magnesium 2.2 Total Bilirubin 20.3 H AST 108 H ALT 37 Alkaline Phosphatase 361 H Ammonia 55.5 H Total Protein 6.4 Albumin 2.3 L Impressions: Abdomen Ultrasound 04/19/17 13:23 IMPRESSION: 1. Limited study due to patient body habitus as detailed above. 2. Hepatic steatosis. No focal liver lesions. 3. Echogenic focus noted in the mid aorta which could represent calcified plaque within the lumen. Assessment & Plan - Diagnosis (1) Hepatic encephalopathy Is this a current diagnosis for this admission?: YesPlan: Start lactulose twice daily. (2) Acute blood loss anemia Is this a current diagnosis for this admission?: YesPlan: Transfused 2 units PRBC. Monitor H&H for stability. (3) GI bleed Qualifiers: GI bleed type/associated pathology: unspecified gastrointestinal hemorrhage type Qualified Code(s): K92.2 - Gastrointestinal hemorrhage, unspecified Is this a current diagnosis for this admission?: YesPlan: Prevacid. Dr. Poole of GI planning upper and lower endoscopy eventually once medical condition stabilized. (4) Abnormal liver function test Is this a current diagnosis for this admission?: YesPlan: Likely secondary to heavy alcohol abuse. GI following. (5) Alcohol abuse Is this a current diagnosis for this admission?: YesPlan: IV thiamine. Scheduled oral Valium. As needed IV Ativan. Consult Dr. Odonnell of psychology. (6) Hyponatremia Is this a current diagnosis for this admission?: YesPlan: Likely secondary to heavy alcohol abuse. Correcting. (7) Coagulopathy Is this a current diagnosis for this admission?: YesPlan: Secondary to alcohol-related liver disease. Patient was administered vitamin K on 04/19/2017. Continue to monitor coags. (8) History of seizure Is this a current diagnosis for this admission?: YesPlan: Likely related to alcohol withdrawal/abuse. Patient was not taking regular medication prior to admission. - Time Time Spent with patient: 35 or more minutes
[2017-04-22] MEDS ORDERED: LACTULOSE SYRUP 20 GM/30 ML UDCUP PO ONE (14:00)
[2017-04-22] MEDS: LACTULOSE SYRUP 20 GM/30 ML UDCUP PO SCH (18:43)
[2017-04-23] MEDS: LORAZEPAM INJ 2 MG/1 ML VIAL IV PRN (00:42)
[2017-04-23 05:16] LABS: ABSOLUTE LYMPHOCYTES (AUTO) 0.7 10^3/uL (0.5-4.7); ABSOLUTE MONOCYTES (AUTO) 0.6 10^3/uL (0.1-1.4); BASOPHILS % (AUTO) 0.4 % (0-2); EOSINOPHILS % (AUTO) 0.4 % (0-6); HEMATOCRIT 25.5 % (36.0-47.0); HEMOGLOBIN 8.6 g/dL (12.0-15.5); HGB HCT DIFFERENCE 0.3; LYMPHOCYTES % (AUTO) 7.3 % (13-45); MEAN CORPUSCULAR HEMOGLOBIN 35.9 pg (27.0-33.4); MEAN CORPUSCULAR HGB CONC 33.8 g/dL (32.0-36.0); MEAN CORPUSCULAR VOLUME 106 fl (80-97); MONOCYTES % (AUTO) 6.5 % (3-13); RED CELL DISTRIBUTION WIDTH 26.1 % (11.5-14.0); SEGMENTED NEUTROPHILS % (AUTO) 85.4 % (42-78); WHITE BLOOD COUNT 9.3 10^3/uL (4.0-10.5)
[2017-04-23 05:17] LABS: PROTHROMBIN TIME 21.3 SEC (11.4-15.4)
[2017-04-23 05:25] LABS: ALANINE AMINOTRANSFERASE 40 U/L (9-52); ALBUMIN 2.3 g/dL (3.5-5.0); ALKALINE PHOSPHATASE 337 U/L (38-126); ANION GAP 11 (5-19); ASPARTATE AMINO TRANSFERASE 133 U/L (14-36); BILIRUBIN,DIRECT 19.1 mg/dL (0.0-0.4); BILIRUBIN,TOTAL 21.6 mg/dL (0.2-1.3); BLOOD UREA NITROGEN 11 mg/dL (7-20); CALCIUM 8.1 mg/dL (8.4-10.2); CARBON DIOXIDE 22 mmol/L (22-30); CHLORIDE 103 mmol/L (98-107); CREATININE RESULT 0.64 mg/dL (0.52-1.25); GLUCOSE 83 mg/dL (75-110); MAGNESIUM 2.3 mg/dL (1.6-2.3); POTASSIUM 3.7 mmol/L (3.6-5.0); SODIUM 135.9 mmol/L (137-145); TOTAL PROTEIN 6.7 g/dL (6.3-8.2)
[2017-04-23] MEDS: LANSOPRAZOLE 30 MG TAB.RAP.DR PO SCH ×2 (05:33→16:43)
[2017-04-23] MEDS: DIAZEPAM 5 MG TABLET PO SCH ×2 (05:33→16:43)
[2017-04-23 06:14] LABS: ANISOCYTOSIS 3+; POIKILOCYTOSIS 2+; POLYCHROMASIA 1+; TARGET CELLS 2+; TOXIC GRANULATION SLIGHT
[2017-04-23] MEDS ORDERED: PHYTONADIONE 5 MG TABLET PO ONE (07:30)
[2017-04-23] MEDS: LACTULOSE SYRUP 20 GM/30 ML UDCUP PO SCH ×2 (09:22→18:43)
[2017-04-23] MEDS: THIAMINE HCL 100 MG TABLET PO SCH (09:23)
--- NOTE | 2017-04-23 11:49 | PDOC PROGRESS REPORT ---
Subjective Progress Note for:: 04/23/17 Subjective:: Nursing reports the patient alternates between times of agitation and other times of somnolence. Patient is a little more alert and appropriate today. She is oriented to person, place, time. Her only significant concern is that she would like more syrup for her pancakes. Physical Exam Vital Signs: Temp Pulse Resp BP Pulse Ox 97.8 F 80 18 95/50 L 95 04/23/17 08:21 04/23/17 08:21 04/23/17 08:21 04/23/17 08:21 04/23/17 08:21 Intake & Output 04/22/17 04/23/17 04/24/17 06:59 06:59 06:59 Intake Total 846 262 Output Total 2600 1025 Balance -1754 -763 Weight 95.8 kg 96.3 kg GENERAL: No acute distress, overtly jaundiced HEENT: Sclera icteric, moist mucous membranes, no JVD, midline trachea RESPIRATORY: Clear to auscultation bilaterally, no wheezes, no rhonchi CARDIAC: Regular rate and rhythm, no murmurs/gallops/rubs ABDOMEN: Soft, nondistended, nontender, positive bowel sounds, no rebound, no guarding EXTREMETIES: No edema, cyanosis, clubbing NEUROLOGIC: Alert, oriented to person/place/time, CN's grossly intact, no focal deficits SKIN: No rash, wounds PSYCH: Usual affect Results Laboratory Results: 04/23/17 04:13 04/23/17 04:13 04/23/17 04/23/17 04:13 04:13 WBC 9.3 RBC 2.40 L Hgb 8.6 L Hct 25.5 L MCV 106 H MCH 35.9 H MCHC 33.8 RDW 26.1 H Plt Count 128 L Seg Neutrophils % 85.4 H Lymphocytes % 7.3 L Monocytes % 6.5 Eosinophils % 0.4 Basophils % 0.4 Absolute Neutrophils 8.0 Absolute Lymphocytes 0.7 Absolute Monocytes 0.6 Absolute Eosinophils 0.0 Absolute Basophils 0.0 Sodium 135.9 L Potassium 3.7 Chloride 103 Carbon Dioxide 22 Anion Gap 11 BUN 11 Creatinine 0.64 Est GFR ( Amer) > 60 Est GFR (Non-Af Amer) > 60 Glucose 83 Calcium 8.1 L Magnesium 2.3 Total Bilirubin 21.6 H AST 133 H ALT 40 Alkaline Phosphatase 337 H Total Protein 6.7 Albumin 2.3 L Impressions: Abdomen Ultrasound 04/19/17 13:23 IMPRESSION: 1. Limited study due to patient body habitus as detailed above. 2. Hepatic steatosis. No focal liver lesions. 3. Echogenic focus noted in the mid aorta which could represent calcified plaque within the lumen. Assessment & Plan - Diagnosis (1) Hepatic encephalopathy Is this a current diagnosis for this admission?: YesPlan: Continue lactulose twice daily. (2) Acute blood loss anemia Is this a current diagnosis for this admission?: YesPlan: Transfused 2 units PRBC on 04/19/2017. Monitor H&H for stability. (3) GI bleed Qualifiers: GI bleed type/associated pathology: unspecified gastrointestinal hemorrhage type Qualified Code(s): K92.2 - Gastrointestinal hemorrhage, unspecified Is this a current diagnosis for this admission?: YesPlan: Prevacid. Dr. Poole of GI planning upper and lower endoscopy eventually once medical condition stabilized. (4) Alcohol abuse Is this a current diagnosis for this admission?: YesPlan: Thiamine. Scheduled oral Valium. As needed IV Ativan. Consult Dr. Odonnell of psychology. (5) Hyponatremia Is this a current diagnosis for this admission?: YesPlan: Likely secondary to heavy alcohol abuse. Correcting. (6) Coagulopathy Is this a current diagnosis for this admission?: YesPlan: Secondary to alcohol-related liver disease. Repeat vitamin K as needed. Continue to monitor coags. (7) History of seizure Is this a current diagnosis for this admission?: YesPlan: Likely related to alcohol withdrawal/abuse. Patient was not taking regular medication prior to admission. (8) Cirrhosis Is this a current diagnosis for this admission?: YesPlan: Liver function tests do not seem to be improving despite abstinence from alcohol. She exhibits impaired synthetic function of liver as indicated by coagulopathy. Per GI she is not a candidate for transplantation evaluation secondary to ongoing alcohol abuse. I think patient's prognosis is poor in her life expectancy is likely to be measured in terms of weeks or months. I would like to place a palliative care consult. - Time Time Spent with patient: 25-34 minutes
[2017-04-24] MEDS: DIAZEPAM 5 MG TABLET PO SCH ×2 (00:07→06:57)
[2017-04-24] MEDS: LANSOPRAZOLE 30 MG TAB.RAP.DR PO SCH ×2 (06:57→17:49)
[2017-04-24 07:42] LABS: HEMATOCRIT 26.1 % (36.0-47.0); HEMOGLOBIN 8.6 g/dL (12.0-15.5); HGB HCT DIFFERENCE -0.3; MEAN CORPUSCULAR HEMOGLOBIN 35.4 pg (27.0-33.4); MEAN CORPUSCULAR VOLUME 107 fl (80-97); RED BLOOD COUNT 2.43 10^6/uL (3.72-5.28); RED CELL DISTRIBUTION WIDTH 25.4 % (11.5-14.0); WHITE BLOOD COUNT 10.2 10^3/uL (4.0-10.5)
[2017-04-24 07:59] LABS: BAND NEUTROPHILS % (MANUAL) 5 % (3-5); BASOPHILS % (MANUAL) 2 % (0-2); EOSINOPHILS % (MANUAL) 0 % (0-6); LYMPHOCYTES % (MANUAL) 10 % (13-45); TOTAL CELLS COUNTED 100
[2017-04-24 08:01] LABS: ANISOCYTOSIS 2+; TOXIC GRANULATION SLIGHT
[2017-04-24 08:02] LABS: BURR CELLS SLIGHT; HELMET CELLS SLIGHT; HYPOCHROMASIA SLIGHT; POIKILOCYTOSIS 2+; POLYCHROMASIA SLIGHT; TARGET CELLS 1+
[2017-04-24 08:05] LABS: ALANINE AMINOTRANSFERASE 38 U/L (9-52); ALBUMIN 2.3 g/dL (3.5-5.0); ALKALINE PHOSPHATASE 311 U/L (38-126); ANION GAP 13 (5-19); ASPARTATE AMINO TRANSFERASE 126 U/L (14-36); BILIRUBIN,DIRECT 19.8 mg/dL (0.0-0.4); BILIRUBIN,TOTAL 22.3 mg/dL (0.2-1.3); BLOOD UREA NITROGEN 9 mg/dL (7-20); CALCIUM 8.1 mg/dL (8.4-10.2); CARBON DIOXIDE 19 mmol/L (22-30); CHLORIDE 106 mmol/L (98-107); CREATININE RESULT 0.62 mg/dL (0.52-1.25); GLUCOSE 91 mg/dL (75-110); MAGNESIUM 2.2 mg/dL (1.6-2.3); POTASSIUM 3.4 mmol/L (3.6-5.0); SODIUM 137.5 mmol/L (137-145); TOTAL PROTEIN 6.3 g/dL (6.3-8.2)
[2017-04-24] MEDS: LACTULOSE SYRUP 20 GM/30 ML UDCUP PO SCH ×2 (09:58→17:49)
[2017-04-24] MEDS: THIAMINE HCL 100 MG TABLET PO SCH (09:58)
[2017-04-24] MEDS ORDERED: POTASSIUM CHLORIDE 10 MEQ TABLET.SA PO ONE (10:30)
[2017-04-24] MEDS: POTASSI CL 20 MEQ/NS 1L 1,000 ML IV PRN (11:06)
--- NOTE | 2017-04-24 11:55 | PDOC PROGRESS REPORT ---
Subjective Progress Note for:: 04/24/17 Subjective:: Nursing reports the patient alternates between times of agitation and other times of somnolence. She was able to wake up for a brief period and discuss the gravity of her medical illness today. Advised her that her liver disease was end-stage and that there was nothing medically or surgically that could be done about this. I advised her that the only option was palliative care. I attempted to address her CODE STATUS but she did not want to make a decision on this so she remains FULL CODE STATUS. Physical Exam Vital Signs: Temp Pulse Resp BP Pulse Ox 97.9 F 87 18 95/53 L 94 04/24/17 07:51 04/24/17 07:51 04/24/17 07:51 04/24/17 07:51 04/24/17 07:51 Intake & Output 04/23/17 04/24/17 04/25/17 06:59 06:59 06:59 Intake Total 262 380 Output Total 1025 725 Balance -763 -345 Weight 96.3 kg 96.3 kg GENERAL: No acute distress, overtly jaundiced HEENT: Sclera icteric, moist mucous membranes, no JVD, midline trachea RESPIRATORY: Clear to auscultation bilaterally, no wheezes, no rhonchi CARDIAC: Regular rate and rhythm, no murmurs/gallops/rubs ABDOMEN: Soft, nondistended, nontender, positive bowel sounds, no rebound, no guarding EXTREMETIES: No edema, cyanosis, clubbing NEUROLOGIC: Alert, oriented to person/place/time, CN's grossly intact, no focal deficits SKIN: No rash, wounds PSYCH: Usual affect Results Laboratory Results: 04/24/17 06:29 04/24/17 06:29 04/24/17 04/24/17 06:29 06:29 WBC 10.2 RBC 2.43 L Hgb 8.6 L Hct 26.1 L MCV 107 H MCH 35.4 H MCHC 33.0 RDW 25.4 H Plt Count 109 L Seg Neutrophils % Not Reportable Lymphocytes % Not Reportable Monocytes % Not Reportable Eosinophils % Not Reportable Basophils % Not Reportable Absolute Neutrophils Not Reportable Absolute Lymphocytes Not Reportable Absolute Monocytes Not Reportable Absolute Eosinophils Not Reportable Absolute Basophils Not Reportable Sodium 137.5 Potassium 3.4 L Chloride 106 Carbon Dioxide 19 L Anion Gap 13 BUN 9 Creatinine 0.62 Est GFR ( Amer) > 60 Est GFR (Non-Af Amer) > 60 Glucose 91 Calcium 8.1 L Magnesium 2.2 Total Bilirubin 22.3 H AST 126 H ALT 38 Alkaline Phosphatase 311 H Total Protein 6.3 Albumin 2.3 L Impressions: Abdomen Ultrasound 04/19/17 13:23 IMPRESSION: 1. Limited study due to patient body habitus as detailed above. 2. Hepatic steatosis. No focal liver lesions. 3. Echogenic focus noted in the mid aorta which could represent calcified plaque within the lumen. Assessment & Plan - Diagnosis (1) Cirrhosis Is this a current diagnosis for this admission?: YesPlan: Liver function tests do not seem to be improving despite abstinence from alcohol. She exhibits impaired synthetic function of liver as indicated by coagulopathy. Per GI she is not a candidate for transplantation evaluation secondary to ongoing alcohol abuse. I think patient's prognosis is poor in her life expectancy is likely to be measured in terms of weeks or months. Since patient has no medical or surgical options the only alternative is palliative/hospice care. Palliative care consult placed. (2) Hepatic encephalopathy Is this a current diagnosis for this admission?: YesPlan: Continue lactulose twice daily. (3) Acute blood loss anemia Is this a current diagnosis for this admission?: YesPlan: Transfused 2 units PRBC on 04/19/2017. Monitor H&H for stability. (4) GI bleed Qualifiers: GI bleed type/associated pathology: unspecified gastrointestinal hemorrhage type Qualified Code(s): K92.2 - Gastrointestinal hemorrhage, unspecified Is this a current diagnosis for this admission?: YesPlan: Prevacid. Dr. Poole of GI was planning upper and lower endoscopy eventually once medical condition stabilized, however patient will likely need to transition to hospice care. (5) Alcohol abuse Is this a current diagnosis for this admission?: YesPlan: Thiamine. Decrease scheduled oral Valium. As needed IV Ativan. Consult Dr. Odonnell of psychology. (6) Hyponatremia Is this a current diagnosis for this admission?: YesPlan: Likely secondary to heavy alcohol abuse. Corrected. (7) Coagulopathy Is this a current diagnosis for this admission?: YesPlan: Secondary to alcohol-related liver disease. Repeat vitamin K as needed. Continue to monitor coags. (8) History of seizure Is this a current diagnosis for this admission?: YesPlan: Likely related to alcohol withdrawal/abuse. Patient was not taking regular medication prior to admission. - Time Time Spent with patient: 25-34 minutes Anticipated discharge: Hospice
[2017-04-24] MEDS ORDERED: DIAZEPAM 5 MG TABLET ONE (13:17)
[2017-04-24] MEDS: LORAZEPAM INJ 2 MG/1 ML VIAL IV PRN (14:49)
[2017-04-25] MEDS: DIAZEPAM 5 MG TABLET PO SCH ×2 (00:27→09:20)
[2017-04-25 05:24] LABS: PROTHROMBIN TIME 21.6 SEC (11.4-15.4)
[2017-04-25 05:36] LABS: HEMATOCRIT 30.6 % (36.0-47.0); HGB HCT DIFFERENCE -0.6; MEAN CORPUSCULAR HEMOGLOBIN 35.8 pg (27.0-33.4); MEAN CORPUSCULAR HGB CONC 32.7 g/dL (32.0-36.0); MEAN CORPUSCULAR VOLUME 109 fl (80-97); WHITE BLOOD COUNT 7.6 10^3/uL (4.0-10.5)
[2017-04-25] MEDS: LANSOPRAZOLE 30 MG TAB.RAP.DR PO SCH (05:59)
[2017-04-25] MEDS: POTASSI CL 20 MEQ/NS 1L 1,000 ML IV PRN (06:10)
[2017-04-25 06:19] LABS: BAND NEUTROPHILS % (MANUAL) 1 % (3-5); BASOPHILS % (MANUAL) 2 % (0-2); EOSINOPHILS % (MANUAL) 1 % (0-6); LYMPHOCYTES % (MANUAL) 7 % (13-45); TOTAL CELLS COUNTED 100
[2017-04-25 06:24] LABS: BURR CELLS 2+; TOXIC GRANULATION 2+
[2017-04-25 06:25] LABS: ACANTHOCYTES 1+; ANISOCYTOSIS 3+; POIKILOCYTOSIS 2+; TARGET CELLS SLIGHT
[2017-04-25 09:08] LABS: ALANINE AMINOTRANSFERASE 41 U/L (9-52); ALBUMIN 2.4 g/dL (3.5-5.0); ALKALINE PHOSPHATASE 314 U/L (38-126); ANION GAP 13 (5-19); ASPARTATE AMINO TRANSFERASE 140 U/L (14-36); BILIRUBIN,DIRECT 21.7 mg/dL (0.0-0.4); BILIRUBIN,TOTAL 24.1 mg/dL (0.2-1.3); BLOOD UREA NITROGEN 10 mg/dL (7-20); CALCIUM 8.3 mg/dL (8.4-10.2); CARBON DIOXIDE 22 mmol/L (22-30); CHLORIDE 107 mmol/L (98-107); GLUCOSE 91 mg/dL (75-110); MAGNESIUM 2.2 mg/dL (1.6-2.3); POTASSIUM 4.1 mmol/L (3.6-5.0); SODIUM 141.7 mmol/L (137-145); TOTAL PROTEIN 6.9 g/dL (6.3-8.2)
[2017-04-25] MEDS: LACTULOSE SYRUP 20 GM/30 ML UDCUP PO SCH ×2 (09:19→18:50)
[2017-04-25] MEDS: THIAMINE HCL 100 MG TABLET PO SCH (09:20)
[2017-04-25] MEDS ORDERED: PHYTONADIONE 5 MG TABLET PO ONE (10:00)
--- NOTE | 2017-04-25 12:52 | PDOC PROGRESS REPORT ---
Subjective Progress Note for:: 04/25/17 Subjective:: Patient's mental status is worse today. At one point during conversation she thought she was at a restaurant. At another point she thought she was in a [facility]. I cannot have reasonable conversation with her. At this point she is not competent to make her own healthcare decisions. I have therefore had an extensive discussion with her father who is her surrogate decision maker. He understands the terminal nature of her cirrhosis and agrees to comfort measures only. Physical Exam Vital Signs: Temp Pulse Resp BP Pulse Ox 97.8 F 85 18 101/60 99 04/25/17 07:18 04/25/17 07:18 04/25/17 07:18 04/25/17 07:18 04/25/17 07:18 Intake & Output 04/24/17 04/25/17 04/26/17 06:59 06:59 06:59 Intake Total 380 1036 Output Total 725 700 Balance -345 336 Weight 96.3 kg 96.2 kg GENERAL: No acute distress, overtly jaundiced HEENT: Sclera icteric, moist mucous membranes, no JVD, midline trachea RESPIRATORY: Clear to auscultation bilaterally, no wheezes, no rhonchi CARDIAC: Regular rate and rhythm, no murmurs/gallops/rubs ABDOMEN: Soft, nondistended, nontender, positive bowel sounds, no rebound, no guarding EXTREMETIES: No edema, cyanosis, clubbing NEUROLOGIC: Alert, globally disoriented, CN's grossly intact, no focal deficits SKIN: No rash, wounds PSYCH: Usual affect Results Laboratory Results: 04/25/17 04:41 04/25/17 08:44 04/25/17 04/25/17 04/25/17 04:41 08:44 08:44 WBC 7.6 RBC 2.80 L Hgb 10.0 L Hct 30.6 L MCV 109 H MCH 35.8 H MCHC 32.7 RDW 26.0 H Plt Count 108 L Seg Neutrophils % Not Reportable Lymphocytes % Not Reportable Monocytes % Not Reportable Eosinophils % Not Reportable Basophils % Not Reportable Absolute Neutrophils Not Reportable Absolute Lymphocytes Not Reportable Absolute Monocytes Not Reportable Absolute Eosinophils Not Reportable Absolute Basophils Not Reportable Sodium 141.7 Potassium 4.1 Chloride 107 Carbon Dioxide 22 Anion Gap 13 BUN 10 Creatinine 0.70 Est GFR ( Amer) > 60 Est GFR (Non-Af Amer) > 60 Glucose 91 Calcium 8.3 L Magnesium 2.2 Total Bilirubin 24.1 H AST 140 H ALT 41 Alkaline Phosphatase 314 H Ammonia 46.9 H Total Protein 6.9 Albumin 2.4 L Impressions: Abdomen Ultrasound 04/19/17 13:23 IMPRESSION: 1. Limited study due to patient body habitus as detailed above. 2. Hepatic steatosis. No focal liver lesions. 3. Echogenic focus noted in the mid aorta which could represent calcified plaque within the lumen. Assessment & Plan - Diagnosis (1) Cirrhosis Is this a current diagnosis for this admission?: YesPlan: Liver function tests worsening despite abstinence from alcohol. She exhibits impaired synthetic function of liver as indicated by coagulopathy. Per GI she is not a candidate for transplantation evaluation secondary to ongoing alcohol abuse. I think patient's prognosis is poor in her life expectancy is likely to be measured in terms of weeks or months. Since patient has no medical or surgical options the only alternative is palliative/hospice care. Palliative care consult placed. I have discussed patient's medical conditions with her father who is her surrogate decision- maker and he agrees with comfort measures only. He states the patient will need to go to inpatient hospice as he is elderly and not able to physically care for her at home. In addition he fell yesterday injuring his left arm is getting ready to go to the emergency department to have it x-rayed. (2) Hepatic encephalopathy Is this a current diagnosis for this admission?: YesPlan: Continue lactulose twice daily. (3) Acute blood loss anemia Is this a current diagnosis for this admission?: Yes (4) GI bleed Qualifiers: GI bleed type/associated pathology: unspecified gastrointestinal hemorrhage type Qualified Code(s): K92.2 - Gastrointestinal hemorrhage, unspecified Is this a current diagnosis for this admission?: YesPlan: Prevacid. Dr. Poole of GI has evaluated patient and was planning upper and lower GI. I think we can abandoned this effort given the fact the patient is now comfort measures only. (5) Alcohol abuse Is this a current diagnosis for this admission?: YesPlan: Thiamine. Decreased scheduled oral Valium. As needed IV Ativan. (6) Hyponatremia Is this a current diagnosis for this admission?: Yes (7) Coagulopathy Is this a current diagnosis for this admission?: YesPlan: Secondary to alcohol-related liver disease. Repeat vitamin K as needed. Continue to monitor coags. (8) History of seizure Is this a current diagnosis for this admission?: Yes - Time Time Spent with patient: 25-34 minutes Anticipated discharge: Hospice Within: when bed available
--- NOTE | 2017-04-25 16:17 | Palliative Consultation Report ---
Consultation From:: JUNO FRANCO - HPI HPI: Mrs. Chao is a 56 year old woman admitted for care related to end stae liver disease. Today she is asleep at time of my visit , having had lorazapam a couple of hours ago. Nurse reports that even when she is awake, she gets confused to time and place. She was very anxious earlier this afternoon and has relaxed with the medication. According to her father, Mrs. Chao has been using alcohol excessively for many years. She has been in and out of hospitals and only recently agreed to stop drinking. [facility] just a few months ago from [place]. She and her were getting a divorce, which was finalized last week in court in [place], but she has not been able to sign her papers due to her illness and mentation. Her father requests that all lorazapam and morphine be held to see if she will become alert. However, I explained to him that her ammonia level in her blood is high enough to keep her from being as awake as she was ast week. She is being treated for this and the level is decreasing but it may have to decrease a great deal more for her to awaken well. The comfort meds are not the reason for her drowsiness or occasioanl confusion. After a long talk with Doctor Willis, the father did agree to make patient DNR and revert to comfort care since there is noting else that can be done this patient medically or surgically. She has severe jaundice of skin and sclera, urine per smith is very dark bernadette and she has been restless. NO ascites was found with ultrasound but her abd is large. Patients father would like to have her transferred to hospice care center. He would prefer the one at [facility], but since he could stay with her at the [facility] in [place], he would be agreeable for there if [facility] is full. network planner has contacted hospital legal about father being able to sign consents for transfer to hospice. His personal exterminator suggested that he apply for court appointed guardianship, but that will take weeks to compete. Onset: Last week - Appreciate Palliative consult with this 56 year old woman who has been hospitalized for end stage liver disease. I spoke with er father and discherge assortment planner at length about her care and needs along with her medical condition and care. Onset/Duration: Gradual Past Medical History(Consults) - General Information Source: Parent, [facility] Records Home Medications: No Home Medications 04/19/17 Allergies/Adverse Reactions: No Known Allergies Allergy (Unverified 04/19/17 09:46) - Social History Lives with: Alone, Family Family History: Reviewed & Not Pertinent Parental Family History Reviewed: No Children Family History Reviewed: No Sibling(s) Family History Reviewed.: No Smoking Status: Never Smoker Frequency of Alcohol Use: Heavy Hx Recreational Drug Use: No Hx Prescription Drug Abuse: No - Past Medical History Cardiac Medical History: Reports: None Pulmonary Medical History: Reports: None Neurological Medical History: Reports: Hx Seizures Endocrine Medical History: Reports: None Malignancy Medical History: Reports: None GI Medical History: Reports: Hx Liver Failure Review of systems ROS unobtainable: due to mental statu Ojective:Exam Vital Signs: Temp Pulse Resp BP Pulse Ox 97.8 F 85 18 101/60 99 04/25/17 07:18 04/25/17 07:18 04/25/17 07:18 04/25/17 07:18 04/25/17 07:18 Intake & Output 04/24/17 04/25/17 04/26/17 06:59 06:59 06:59 Intake Total 380 1036 Output Total 725 700 Balance -345 336 Weight 96.3 kg 96.2 kg - General General Appearance: Lethargic, Unresponsive In distress: None - Sleeping soundly after lorazapam administered. No response to verbal stiluli. No apparent distress at this time. - HEENT Head: Normocephalic Eyes: Scleral icterus Conjunctiva: Icteric - Respiratory Respiratory Status: No respiratory distress Breath sounds: Clear - Cardiovascular Rhythm: Regular Pulses: Normal: Radial - Abdominal Inspection: Obese - Neurological Cognition: Confused - Skin Skin Temperature: Warm Skin Color: Jaundiced, Petechiae Objective-Diagnostic Laboratory: 04/25/17 04:41 04/25/17 08:44 04/25/17 04/25/17 04/25/17 04:41 08:44 08:44 WBC 7.6 RBC 2.80 L Hgb 10.0 L Hct 30.6 L MCV 109 H MCH 35.8 H MCHC 32.7 RDW 26.0 H Plt Count 108 L Seg Neutrophils % Not Reportable Lymphocytes % Not Reportable Monocytes % Not Reportable Eosinophils % Not Reportable Basophils % Not Reportable Absolute Neutrophils Not Reportable Absolute Lymphocytes Not Reportable Absolute Monocytes Not Reportable Absolute Eosinophils Not Reportable Absolute Basophils Not Reportable Sodium 141.7 Potassium 4.1 Chloride 107 Carbon Dioxide 22 Anion Gap 13 BUN 10 Creatinine 0.70 Est GFR ( Amer) > 60 Est GFR (Non-Af Amer) > 60 Glucose 91 Calcium 8.3 L Magnesium 2.2 Total Bilirubin 24.1 H AST 140 H ALT 41 Alkaline Phosphatase 314 H Ammonia 46.9 H Total Protein 6.9 Albumin 2.4 L Plan and Recommendation Plan and Recommendation: Support offered for patient's father. He is stressed with care of daughter, legal issues and trauma he has suffered himself with injury to left wrist from fall. As above, long discussion about hospice care center transfer for comfort care. WIll ask [facility] hospice liason to follow in case bed not available with [facility] facility. Father would like patient to regain full consciousness, but he is aware that she is very ill and may not be able to have the conversations he would like to have. No recommendations at this time. Lactulose is still ordered and comfort meds are available if needed. I gave my cell phone number to patients father if needed for support. Appreciate opportunity to support this gentleman and his daughter, will follow. - Time Spent with Patient Time spent with patient: 30 to 40 Minutes - 25 min with patient and family, 10 min chart review.
[2017-04-25] MEDS: MORPHINE SULFATE 10 MG/ML INJ IV PRN ×2 (20:37→22:52)
[2017-04-25] MEDS: LORAZEPAM INJ 2 MG/1 ML VIAL IV PRN ×2 (20:38→22:52)
[2017-04-26] MEDS: LORAZEPAM INJ 2 MG/1 ML VIAL IV PRN ×2 (06:07→11:28)
[2017-04-26] MEDS: MORPHINE SULFATE 10 MG/ML INJ IV PRN (07:56)
[2017-04-26] MEDS: LACTULOSE SYRUP 20 GM/30 ML UDCUP PO SCH (11:26)
[2017-04-26 13:36] VITALS: BP 103/47
--- NOTE | 2017-04-26 14:52 | PDOC DISCHARGE SUMMARY ---
General - Admit/Disc Date/PCP Admission Date/Primary Care Provider: 04/19/17 13:06 Discharge Date: 04/26/17 - Discharge Diagnosis (1) End stage liver disease Is this a current diagnosis for this admission?: Yes (2) Hepatic encephalopathy Is this a current diagnosis for this admission?: Yes (3) Acute blood loss anemia Is this a current diagnosis for this admission?: Yes (4) Cirrhosis Is this a current diagnosis for this admission?: Yes (5) Alcohol abuse Is this a current diagnosis for this admission?: Yes (6) Coagulopathy Is this a current diagnosis for this admission?: Yes (7) GI bleed Is this a current diagnosis for this admission?: Yes (8) History of seizure Is this a current diagnosis for this admission?: Yes (9) Hyponatremia Is this a current diagnosis for this admission?: Yes - Additional Information Resuscitation Status: Full Code Discharge Diet: As Tolerated Discharge Activity: Activity As Tolerated Home Medications: No Home Medications 04/19/17 History of Present Illness History of Present Illness: BARBARA OG is a 56 year old female is a 56 year old female with history of heavy alcohol abuse the presents to the emergency department with frequent falls and difficulty ambulating. In the emergency department she is found to have numerous medical problems including elevated liver function test, profound anemia, found hyponatremia. She denies any overt bleeding, hematemesis, melena. She does have a history of peptic ulcer disease. She states that she drinks a box of wine every 1-2 days. She has gone through alcohol withdrawal in the past. She has tried to abstain from alcohol in the past unsuccessfully. Hospital Course Hospital Course: Patient was admitted and found to be coagulopathic with some evidence of GI bleeding. Received a total of 2 units of packed red blood cells with minimal improvement of her hemoglobin. Patient continued to be profoundly cirrhotic as well as altered due to underlying hepatic encephalopathy and somewhat in part to alcohol withdrawal. Despite lactulose and other aggressive measurements, patient did not improve and prior physician had discussion with patient family whom at the time and agreed to comfort measures. Pt was made comfort measures and aggressive measures were stopped. [facility]. Physical Exam Vital Signs: Temp Pulse Resp BP Pulse Ox 98.3 F 86 20 103/47 L 92 04/26/17 13:33 04/26/17 13:33 04/26/17 13:33 04/26/17 13:33 04/26/17 13:33 Intake & Output 04/25/17 04/26/17 04/27/17 06:59 06:59 06:59 Intake Total 1036 636 Output Total 700 600 Balance 336 36 Weight 96.2 kg 96.1 kg Exam: GENERAL: No acute distress, overtly jaundiced, unresponsive HEENT: Sclera icteric, moist mucous membranes, no JVD, midline trachea RESPIRATORY: Clear to auscultation bilaterally, no wheezes, no rhonchi CARDIAC: Regular rate and rhythm, no murmurs/gallops/rubs ABDOMEN: Soft, distended, nontender, positive bowel sounds, no rebound, no guarding EXTREMETIES: No cyanosis, clubbing; +1 edema NEUROLOGIC: lethargic, CN's grossly intact, no focal deficits SKIN: No rash, wounds PSYCH: Usual affect Results Laboratory Results: 04/25/17 04:41 04/25/17 08:44 Impressions: Abdomen Ultrasound 04/19/17 13:23 IMPRESSION: 1. Limited study due to patient body habitus as detailed above. 2. Hepatic steatosis. No focal liver lesions. 3. Echogenic focus noted in the mid aorta which could represent calcified plaque within the lumen. Qualifiers PATEINT BEING DISCHARGED WITH ANY OF THE FOLLOWING DIAGNOSIS?: No Plan Time Spent: Less than 30 Minutes
== END 2017-04-26 15:21 | disposition hospice, inpatient (51) | DRG 433 ==
LOC: ER 08:18 → EH 13:06 → UNDOADMIN 13:26 → 3N 15:50
PROVIDERS: ADMIT Family Medicine; ATTEND Family Medicine
PROC: 30233N1 Transfusion of Nonautologous Red Blood Cells into Peripheral Vein, Percutaneous Approach (ICD-10-PCS; principal; 2017-04-19)
DX: K70.30 Alcoholic cirrhosis of liver without ascites (principal); K92.2 Gastrointestinal hemorrhage, unspecified; D62 Acute posthemorrhagic anemia; E87.1 Hypo-osmolality and hyponatremia; F10.239 Alcohol dependence with withdrawal, unspecified; Z68.41 Body mass index [BMI] 40.0-44.9, adult; Z51.5 Encounter for palliative care; E66.9 Obesity, unspecified; K70.40 Alcoholic hepatic failure without coma; Z87.11 Personal history of peptic ulcer disease
CPT/HCPCS: 36415; 36430; 76705; 80048; 80053; 80074; 80076; 80307; 81001; 82140; 82272; 82607; 82728; 82747; 83540; 83550; 83690; 83735; 84466; 85025; 85027; 85610; 86850; 86900; 86901; 86920; 96374; 96375; 99291; J2060; J2270; J2354; J3411; J3480; J3490; J7030; J7040; P9016; S0164